=== PATIENT | male | born 1980 | race African-American/Black ===

== ENCOUNTER 2020-08-16 19:27 | Emergency (ER) | payer OTHER ==
[~2020-08-16] VITALS: Ht 185.4 cm; Wt 111.0 kg
[2020-08-16] MEDS ORDERED: AMOX-424 MT (20:33)
[2020-08-16] MEDS: AMOXICILLIN/POTASSIUM CLAVULANATE 875/125MG TAB PO ONE (21:10)
[2020-08-16 21:18] VITALS: BP 149/80
== END 2020-08-16 21:20 | disposition home or self-care (01) ==
LOC: ER 19:27
DX: L03.115 Cellulitis of right lower limb (principal); E11.9 Type 2 diabetes mellitus without complications; Z98.890 Other specified postprocedural states
CPT/HCPCS: 99283

== ENCOUNTER 2020-09-11 03:41 | Inpatient (IN) | payer OTHER ==
[~2020-09-11] VITALS: Ht 185.4 cm; Wt 110.2 kg
[~2020-09-11 03:41] MED LIST: AMOX-424 MT
[2020-09-11 05:34] LABS: BASOPHILS % 0.7 % (0.0-2.0); EOSINOPHILS % 0.6 % (0.0-5.0); HEMATOCRIT. 35.7 % (42.0-52.0); HEMOGLOBIN. 11.2 g/dL (14.0-18.0); LYMPHOCYTES % 8.3 % (20.0-50.0); MEAN CORPUSCULAR HEMOGLOBIN 26.1 pg (28.0-32.0); MEAN CORPUSCULAR VOLUME 83.1 fL (80.0-94.0); MEAN PLATELET VOLUME 8.5 fl (7.4-10.4); MONOCYTES % 14.7 % (2.0-8.0); NEUTROPHILS % 75.7 % (40.0-76.0); PLATELET 407 x1000/uL (130-400); RED BLOOD CELL COUNT 4.29 mill/uL (4.7-6.1); RED CELL DISTRIBUTION WIDTH 13.4 % (11.6-14.6)
[2020-09-11 05:41] LABS: CHLORIDE 93 mEq/L (98-107)
[2020-09-11 05:47] LABS: INR 1.1; PROTHROMBIN TIME 11.5 sec (9.6-11.0)
[2020-09-11] MEDS ORDERED: ONDANSETRON HCL 4MG/2ML INJ IV STA (06:33)
[2020-09-11] MEDS ORDERED: MORPHINE SULFATE 4 MG/ML CPJ (NOT FOR IM USE) IV STA (06:33)
[2020-09-11] MEDS ORDERED: VANCOMYCIN 1 G PREMIX 200 ML IV ONE (06:45)
[2020-09-11] MEDS ORDERED: ACETAMINOPHEN 325MG TABLET PO ONE (06:45)
[2020-09-11] MEDS ORDERED: SODIUM CHLORIDE 0.9% 1000ML BAG (SEPSIS BOLUS) IV ONE (06:45)
[2020-09-11] MEDS ORDERED: PIPERACILLIN/TAZ 3.375G PREMIX 50 ML IV ONE (06:45)
[2020-09-11 08:18] LABS: CLARITY URINE CLEAR (CLEAR); COLOR URINE YELLOW (YELLOW); KETONES URINE 2+ (NEGATIVE); LEUKOCYTE ESTERASE URINE NEGATIVE (NEGATIVE); NITRITE URINE NEGATIVE (NEGATIVE); OCCULT BLOOD URINE NEGATIVE (NEGATIVE); PH URINE 5.5 (4.5-8.0); PROTEIN URINE 1+ (NEGATIVE); SPECIFIC GRAVITY URINE 1.019 (1.005-1.030)
[2020-09-11] MEDS ORDERED: GLUC-113 MT (13:58)
[2020-09-11] MEDS ORDERED: METF-414 MT (13:58)
[2020-09-11] MEDS ORDERED: LISINOPRIL 20MG TABLET PO NR (14:00)
[2020-09-11] MEDS ORDERED: ACETAMINOPHEN 650MG/20.3ML UDC PO PRN (14:00)
[2020-09-11] MEDS ORDERED: INSULIN GLARGINE UD 100 UNITS/ML SYR SUBCUT NR (14:00)
[2020-09-11] MEDS ORDERED: PIPERACILLIN/TAZOBACTAM 3.375 G/VIAL IV SCH (14:00)
[2020-09-11] MEDS ORDERED: DEXTROSE 50% WATER 50ML SYRINGE IV PRN (14:00)
[2020-09-11 14:01] VITALS: BP 172/85
[2020-09-11] MEDS: CLONIDINE 0.1MG TABLET PO PRN (14:37)
[2020-09-11 16:00] VITALS: BP 116/66
[2020-09-11] MEDS: PIPERACILLIN/TAZOBACTAM 3.375 G in DEXT 5% WATER 100 ML IV SCH (17:04)
[2020-09-11] MEDS: VANCOMYCIN 1250MG in DEXTROSE 5% WATER 250ML IV SCH (18:05)
[2020-09-11] MEDS: BLOOD SUGAR DIAGNOSTIC STRIP TEST SCH ×2 (18:13→21:56)
[2020-09-11] MEDS: INSULIN LISPRO 100 UNITS/ML SUBCUT SCH ×2 (18:21→21:00)
[2020-09-11 20:29] VITALS: BP 102/61
[2020-09-11] MEDS: ACETAMINOPHEN 325MG TABLET PO PRN (21:55)
[2020-09-12] VITALS (7 sets, daily range): BP systolic 103–150; BP diastolic 51–74
[2020-09-12] MEDS: PIPERACILLIN/TAZOBACTAM 3.375 G in DEXT 5% WATER 100 ML IV SCH ×4 (00:37→23:38)
[2020-09-12] MEDS: VANCOMYCIN 1250MG in DEXTROSE 5% WATER 250ML IV SCH ×3 (02:07→21:09)
[2020-09-12] MEDS: BLOOD SUGAR DIAGNOSTIC STRIP TEST SCH ×4 (06:45→21:16)
[2020-09-12 08:04] LABS: CHLORIDE 95 mEq/L (98-107)
[2020-09-12 08:12] LABS: PHOSPHORUS 3.9 mg/dL (2.5-4.9)
[2020-09-12] MEDS: LISINOPRIL 20MG TABLET PO SCH ×2 (08:21→08:29)
[2020-09-12] MEDS: ACETAMINOPHEN 325MG TABLET PO PRN ×3 (08:21→22:29)
[2020-09-12] MEDS: INSULIN LISPRO 100 UNITS/ML SUBCUT SCH ×4 (08:27→21:00)
[2020-09-12] MEDS: AMLODIPINE 5MG TABLET PO SCH ×2 (08:29→17:00)
[2020-09-12] MEDS: ENOXAPARIN 30MG/0.3ML SYR SUBCUT SCH ×2 (08:29→21:00)
[2020-09-12] MEDS: INSULIN GLARGINE UD 100 UNITS/ML SYR SUBCUT SCH (10:00)
[2020-09-12 14:08] LABS: HEMATOCRIT. 31.3 % (42.0-52.0); HEMOGLOBIN. 10.2 g/dL (14.0-18.0); MEAN CORPUSCULAR HEMOGLOBIN 26.8 pg (28.0-32.0); MEAN CORPUSCULAR VOLUME 82.5 fL (80.0-94.0); PLATELET 399 x1000/uL (130-400); RED CELL DISTRIBUTION WIDTH 13.5 % (11.6-14.6)
[2020-09-12] MEDS ORDERED: LIDOCAINE HCL 1% 20ML VIAL (Pyxis) INJ INFIL NR (14:30)
[2020-09-12] MEDS ORDERED: LIDOCAINE HCL 2% JELLY 5ML TOP NR (14:30)
[2020-09-12 16:05] LABS: PLATELET ESTIMATE NORMAL
[2020-09-12] MEDS ORDERED: TETANUS, DIPHTHERIA, PERTUSSIS VAC/PF 0.5ML (>7YR OLD) IM ONE (16:30)
[2020-09-12] MEDS: GLIPIZIDE 5MG TABLET PO SCH (16:49)
[2020-09-12] MEDS: METFORMIN HCL 500MG TABLET PO SCH (16:49)
[2020-09-12] MEDS ORDERED: MAGNESIUM 1 G PREMIX 100 ML IV NR (21:00)
[2020-09-13] VITALS: BP 151/67
[2020-09-13] MEDS: VANCOMYCIN 1250MG in DEXTROSE 5% WATER 250ML IV SCH ×3 (00:43→17:28)
[2020-09-13 04:00] VITALS: BP 151/83
[2020-09-13] MEDS: BLOOD SUGAR DIAGNOSTIC STRIP TEST SCH ×4 (06:20→21:14)
[2020-09-13] MEDS: PIPERACILLIN/TAZOBACTAM 3.375 G in DEXT 5% WATER 100 ML IV SCH ×4 (06:21→23:43)
[2020-09-13] MEDS: GLIPIZIDE 5MG TABLET PO SCH ×2 (06:21→18:30)
[2020-09-13] MEDS ORDERED: BUPIVACAINE HCL/PF 0.5% (5MG/ML) 10ML ONE (07:18)
[2020-09-13] MEDS ORDERED: VANCOMYCIN HCL 1 GM/VIAL ONE (07:18)
[2020-09-13] MEDS ORDERED: LIDOCAINE HCL 1% 20ML VIAL (Pyxis) INJ ONE (07:18)
[2020-09-13] MEDS ORDERED: POLYMYXIN B SULFATE 500000 UNITS/VIAL ONE (07:18)
[2020-09-13] MEDS: INSULIN LISPRO 100 UNITS/ML SUBCUT SCH ×4 (07:50→21:00)
[2020-09-13] MEDS: METFORMIN HCL 500MG TABLET PO SCH ×2 (07:50→17:28)
[2020-09-13 08:00] VITALS: BP 150/78
[2020-09-13] MEDS: SODIUM HYPOCHLORITE 0.125% 473ML SOLUTION TOP SCH (08:00)
[2020-09-13] MEDS: AMLODIPINE 5MG TABLET PO SCH ×2 (09:00→17:28)
[2020-09-13] MEDS: LISINOPRIL 20MG TABLET PO SCH (09:00)
[2020-09-13] MEDS: ENOXAPARIN 30MG/0.3ML SYR SUBCUT SCH ×2 (09:00→21:00)
[2020-09-13] MEDS ORDERED: MIDAZOLAM HCL 5 MG/5 ML VIAL ONE (09:10)
[2020-09-13] MEDS ORDERED: FENTANYL CITRATE/PF 50MCG/ML 5ML VIAL ONE ×2 (09:12→09:16)
[2020-09-13] MEDS ORDERED: PROPOFOL 200MG/20ML VIAL IV ONE (09:13)
[2020-09-13] MEDS: INSULIN GLARGINE UD 100 UNITS/ML SYR SUBCUT SCH (10:00)
[2020-09-13] MEDS ORDERED: MEPERIDINE HCL/PF 25MG/ML CPJ IV PRN (10:30)
[2020-09-13] MEDS ORDERED: MORPHINE SULFATE 2 MG/ML CPJ (NOT FOR IM USE) IV PRN (10:30)
[2020-09-13] MEDS ORDERED: SODIUM CHLORIDE 0.9% 1,000 ML IV ONE (10:30)
[2020-09-13] MEDS ORDERED: ONDANSETRON HCL 4MG/2ML INJ IV PRN (10:30)
[2020-09-13] MEDS ORDERED: HYDROMORPHONE HCL/PF 2MG/ML CPJ IV PRN (10:30)
[2020-09-13] MEDS: ACETAMINOPHEN 325MG TABLET PO PRN (11:52)
[2020-09-13 12:00] VITALS: BP 150/82
[2020-09-13 13:54] LABS: CHLORIDE 97 mEq/L (98-107)
[2020-09-13] MEDS: HYDROCODONE/ACETAMINOPHEN 10/325MG TABLET PO PRN (14:14)
[2020-09-13 16:00] VITALS: BP 147/81
[2020-09-13 20:00] VITALS: BP 144/69
[2020-09-14] VITALS: BP 151/77
[2020-09-14] MEDS: VANCOMYCIN 1250MG in DEXTROSE 5% WATER 250ML IV SCH ×3 (02:02→18:11)
[2020-09-14 04:00] VITALS: BP 143/76
[2020-09-14] MEDS: PIPERACILLIN/TAZOBACTAM 3.375 G in DEXT 5% WATER 100 ML IV SCH ×3 (06:28→20:27)
[2020-09-14] MEDS: GLIPIZIDE 5MG TABLET PO SCH ×2 (06:28→18:11)
[2020-09-14] MEDS: BLOOD SUGAR DIAGNOSTIC STRIP TEST SCH ×4 (07:12→20:31)
[2020-09-14] MEDS: INSULIN LISPRO 100 UNITS/ML SUBCUT SCH ×4 (07:50→20:31)
[2020-09-14 08:00] VITALS: BP 148/69
[2020-09-14] MEDS ORDERED: LIDOCAINE HCL 1% 20ML VIAL (Pyxis) INJ INFIL SCH (08:30)
[2020-09-14] MEDS ORDERED: LIDOCAINE HCL 2% JELLY 5ML TOP SCH (08:30)
[2020-09-14] MEDS: ENOXAPARIN 30MG/0.3ML SYR SUBCUT SCH ×2 (09:00→20:32)
[2020-09-14] MEDS: AMLODIPINE 5MG TABLET PO SCH ×2 (09:00→17:00)
[2020-09-14] MEDS: LISINOPRIL 20MG TABLET PO SCH (09:00)
[2020-09-14] MEDS: METFORMIN HCL 500MG TABLET PO SCH ×2 (09:37→18:11)
[2020-09-14] MEDS: INSULIN GLARGINE UD 100 UNITS/ML SYR SUBCUT SCH (09:40)
[2020-09-14] MEDS: SODIUM HYPOCHLORITE 0.125% 473ML SOLUTION TOP SCH (09:41)
[2020-09-14] MEDS: HYDROCODONE/ACETAMINOPHEN 10/325MG TABLET PO PRN (10:57)
[2020-09-14 12:00] VITALS: BP 157/76
[2020-09-14 16:00] VITALS: BP 151/80
[2020-09-14 20:00] VITALS: BP 154/75
[2020-09-15] VITALS: BP 152/75
[2020-09-15] MEDS: PIPERACILLIN/TAZOBACTAM 3.375 G in DEXT 5% WATER 100 ML IV SCH ×5 (00:48→23:12)
[2020-09-15] MEDS: VANCOMYCIN 1250MG in DEXTROSE 5% WATER 250ML IV SCH ×3 (02:12→17:28)
[2020-09-15 04:00] VITALS: BP 150/80
[2020-09-15] MEDS: GLIPIZIDE 5MG TABLET PO SCH ×2 (06:30→17:28)
[2020-09-15] MEDS: BLOOD SUGAR DIAGNOSTIC STRIP TEST SCH ×4 (06:36→20:32)
[2020-09-15] MEDS: INSULIN LISPRO 100 UNITS/ML SUBCUT SCH ×4 (07:50→20:33)
[2020-09-15 08:00] VITALS: BP 137/72
[2020-09-15] MEDS: LISINOPRIL 20MG TABLET PO SCH (09:00)
[2020-09-15] MEDS: ENOXAPARIN 30MG/0.3ML SYR SUBCUT SCH ×2 (09:00→20:26)
[2020-09-15] MEDS: AMLODIPINE 5MG TABLET PO SCH ×2 (09:00→17:00)
[2020-09-15] MEDS: METFORMIN HCL 500MG TABLET PO SCH ×2 (09:19→17:28)
[2020-09-15] MEDS: SODIUM HYPOCHLORITE 0.125% 473ML SOLUTION TOP SCH (09:20)
[2020-09-15] MEDS: INSULIN GLARGINE UD 100 UNITS/ML SYR SUBCUT SCH (09:20)
[2020-09-15 10:18] LABS: HEMOGLOBIN. 10.3 g/dL (14.0-18.0); MEAN CORPUSCULAR HEMOGLOBIN 27.9 pg (28.0-32.0); MEAN CORPUSCULAR VOLUME 83.8 fL (80.0-94.0); MEAN PLATELET VOLUME 7.6 fl (7.4-10.4); PLATELET 501 x1000/uL (130-400); RED CELL DISTRIBUTION WIDTH 13.2 % (11.6-14.6)
[2020-09-15 12:00] VITALS: BP 159/78
[2020-09-15 16:00] VITALS: BP 162/84
[2020-09-15 18:28] LABS: PLATELET ESTIMATE MARKEDLY INCREASED
[2020-09-15 20:00] VITALS: BP 150/83
[2020-09-15] MEDS: ONDANSETRON HCL 4MG/2ML INJ IV PRN (23:11)
[2020-09-16 00:15] VITALS: BP 141/77
[2020-09-16] MEDS: VANCOMYCIN 1250MG in DEXTROSE 5% WATER 250ML IV SCH ×2 (01:09→10:53)
[2020-09-16 04:00] VITALS: BP 162/88
[2020-09-16] MEDS: PIPERACILLIN/TAZOBACTAM 3.375 G in DEXT 5% WATER 100 ML IV SCH ×2 (06:11→14:15)
[2020-09-16] MEDS: GLIPIZIDE 5MG TABLET PO SCH ×2 (06:22→18:14)
[2020-09-16] MEDS: BLOOD SUGAR DIAGNOSTIC STRIP TEST SCH ×4 (06:22→20:16)
[2020-09-16] MEDS: INSULIN LISPRO 100 UNITS/ML SUBCUT SCH ×4 (07:50→20:16)
[2020-09-16 08:00] VITALS: BP 165/82
[2020-09-16 08:31] LABS: VANCOMYCIN TROUGH 17.2 ug/mL (5.0-10.0)
[2020-09-16] MEDS: ENOXAPARIN 30MG/0.3ML SYR SUBCUT SCH ×2 (08:46→20:16)
[2020-09-16] MEDS: AMLODIPINE 5MG TABLET PO SCH ×2 (08:46→17:00)
[2020-09-16] MEDS: LISINOPRIL 20MG TABLET PO SCH (08:46)
[2020-09-16] MEDS: METFORMIN HCL 500MG TABLET PO SCH ×2 (08:54→18:34)
[2020-09-16] MEDS: SODIUM HYPOCHLORITE 0.125% 473ML SOLUTION TOP SCH (09:11)
[2020-09-16] MEDS: INSULIN GLARGINE UD 100 UNITS/ML SYR SUBCUT SCH (10:00)
[2020-09-16] MEDS: CLONIDINE 0.1MG TABLET PO PRN ×2 (11:56→23:02)
[2020-09-16 12:00] VITALS: BP 173/93
[2020-09-16] MEDS ORDERED: VANCOMYCIN 1500MG in DEXTROSE 5% WATER 250ML IV SCH (12:00)
[2020-09-16] MEDS: AMPICILLIN SOD/SULBACTAM NA 3 G in SODIUM CHLORIDE 0.9% 100 ML IV SCH ×2 (18:15→23:02)
[2020-09-16 20:29] VITALS: BP 157/78
[2020-09-16] MEDS: ONDANSETRON HCL 4MG/2ML INJ IV PRN (22:56)
[2020-09-17] VITALS: BP 165/81
[2020-09-17 04:00] VITALS: BP 147/84
[2020-09-17] MEDS: AMPICILLIN SOD/SULBACTAM NA 3 G in SODIUM CHLORIDE 0.9% 100 ML IV SCH ×4 (05:20→23:46)
[2020-09-17] MEDS: BLOOD SUGAR DIAGNOSTIC STRIP TEST SCH ×4 (05:48→21:26)
[2020-09-17] MEDS: DIPHENHYDRAMINE 50MG/ML VIAL IV PRN (05:49)
[2020-09-17 06:31] LABS: CLARITY URINE CLEAR (CLEAR); COLOR URINE YELLOW (YELLOW); KETONES URINE NEGATIVE (NEGATIVE); LEUKOCYTE ESTERASE URINE TRACE (NEGATIVE); NITRITE URINE NEGATIVE (NEGATIVE); OCCULT BLOOD URINE NEGATIVE (NEGATIVE); PH URINE 5.5 (4.5-8.0); PROTEIN URINE TRACE (NEGATIVE); SPECIFIC GRAVITY URINE 1.011 (1.005-1.030); UROBILINOGEN URINE 0.2 E.U./dL (0.2-1.0)
[2020-09-17] MEDS: INSULIN LISPRO 100 UNITS/ML SUBCUT SCH ×4 (07:50→21:00)
[2020-09-17] MEDS: METFORMIN HCL 500MG TABLET PO SCH ×2 (08:39→18:02)
[2020-09-17] MEDS: GLIPIZIDE 5MG TABLET PO SCH ×2 (08:39→18:02)
[2020-09-17] MEDS: LISINOPRIL 20MG TABLET PO SCH (08:41)
[2020-09-17] MEDS: AMLODIPINE 5MG TABLET PO SCH ×2 (08:41→17:00)
[2020-09-17] MEDS: SODIUM HYPOCHLORITE 0.125% 473ML SOLUTION TOP SCH (08:41)
[2020-09-17] MEDS: ENOXAPARIN 30MG/0.3ML SYR SUBCUT SCH ×2 (08:41→21:00)
[2020-09-17] MEDS: INSULIN GLARGINE UD 100 UNITS/ML SYR SUBCUT SCH (09:41)
[2020-09-17] MEDS ORDERED: LIDOCAINE HCL 1% 20ML VIAL (Pyxis) INJ ONE (11:32)
[2020-09-17 16:00] VITALS: BP 150/99
[2020-09-17 20:00] VITALS: BP 146/83
[2020-09-18] VITALS: BP_SYST 156; BP_SYST 157; BP_DIAS 76; BP_DIAS 81
[2020-09-18 04:00] VITALS: BP 157/76
[2020-09-18] MEDS: AMPICILLIN SOD/SULBACTAM NA 3 G in SODIUM CHLORIDE 0.9% 100 ML IV SCH ×3 (05:34→17:35)
[2020-09-18] MEDS: GLIPIZIDE 5MG TABLET PO SCH ×2 (06:21→17:34)
[2020-09-18] MEDS: BLOOD SUGAR DIAGNOSTIC STRIP TEST SCH ×4 (06:26→21:15)
[2020-09-18] MEDS: INSULIN LISPRO 100 UNITS/ML SUBCUT SCH ×4 (07:50→21:00)
[2020-09-18 08:00] VITALS: BP 166/90
[2020-09-18] MEDS: ONDANSETRON HCL 4MG/2ML INJ IV PRN ×2 (08:48→20:16)
[2020-09-18] MEDS: METFORMIN HCL 500MG TABLET PO SCH ×2 (08:48→17:34)
[2020-09-18] MEDS: AMLODIPINE 5MG TABLET PO SCH ×2 (08:51→17:00)
[2020-09-18] MEDS: LISINOPRIL 20MG TABLET PO SCH (08:51)
[2020-09-18] MEDS: ENOXAPARIN 30MG/0.3ML SYR SUBCUT SCH ×2 (08:51→21:00)
[2020-09-18] MEDS: SODIUM HYPOCHLORITE 0.125% 473ML SOLUTION TOP SCH (08:51)
[2020-09-18] MEDS: INSULIN GLARGINE UD 100 UNITS/ML SYR SUBCUT SCH (10:00)
[2020-09-18] MEDS: ACETAMINOPHEN 325MG TABLET PO PRN (10:19)
[2020-09-18 12:00] VITALS: BP 166/86
[2020-09-18 20:00] VITALS: BP 164/83
[2020-09-18] MEDS: SODIUM CHLORIDE 0.9% 1,000 ML IV SCH (22:22)
[2020-09-19] VITALS: BP 156/76
[2020-09-19] MEDS: AMPICILLIN SOD/SULBACTAM NA 3 G in SODIUM CHLORIDE 0.9% 100 ML IV SCH ×2 (00:02→05:17)
[2020-09-19 04:00] VITALS: BP 168/90
[2020-09-19] MEDS: SODIUM CHLORIDE 0.9% 1,000 ML IV SCH ×3 (05:18→21:30)
[2020-09-19] MEDS: GLIPIZIDE 5MG TABLET PO SCH ×2 (06:37→17:14)
[2020-09-19] MEDS: BLOOD SUGAR DIAGNOSTIC STRIP TEST SCH ×4 (06:38→21:43)
[2020-09-19 06:53] LABS: BASOPHILS % 0.2 % (0.0-2.0); EOSINOPHILS % 4.7 % (0.0-5.0); HEMATOCRIT. 31.4 % (42.0-52.0); HEMOGLOBIN. 10.1 g/dL (14.0-18.0); LYMPHOCYTES % 7.6 % (20.0-50.0); MEAN CORPUSCULAR HEMOGLOBIN 26.4 pg (28.0-32.0); MEAN CORPUSCULAR VOLUME 82.2 fL (80.0-94.0); MEAN PLATELET VOLUME 7.3 fl (7.4-10.4); MONOCYTES % 11.1 % (2.0-8.0); NEUTROPHILS % 76.4 % (40.0-76.0); PLATELET 620 x1000/uL (130-400); RED BLOOD CELL COUNT 3.82 mill/uL (4.7-6.1); RED CELL DISTRIBUTION WIDTH 13.7 % (11.6-14.6)
[2020-09-19] MEDS: INSULIN LISPRO 100 UNITS/ML SUBCUT SCH ×4 (07:50→21:00)
[2020-09-19 08:00] VITALS: BP 160/81
[2020-09-19] MEDS: LISINOPRIL 20MG TABLET PO SCH (09:00)
[2020-09-19] MEDS: ENOXAPARIN 30MG/0.3ML SYR SUBCUT SCH ×2 (09:00→21:00)
[2020-09-19] MEDS: AMLODIPINE 5MG TABLET PO SCH ×2 (09:00→17:00)
[2020-09-19] MEDS: METFORMIN HCL 500MG TABLET PO SCH ×2 (09:06→17:14)
[2020-09-19] MEDS: INSULIN GLARGINE UD 100 UNITS/ML SYR SUBCUT SCH (09:07)
[2020-09-19] MEDS: SODIUM HYPOCHLORITE 0.125% 473ML SOLUTION TOP SCH (09:08)
[2020-09-19] MEDS: ONDANSETRON HCL 4MG/2ML INJ IV PRN (09:08)
[2020-09-19] MEDS ORDERED: LIDOCAINE HCL 1% 20ML VIAL (Pyxis) INJ ONE (09:40)
[2020-09-19 12:00] VITALS: BP 155/77
[2020-09-19] MEDS: DIPHENHYDRAMINE 50MG/ML VIAL IV PRN (13:36)
[2020-09-19] MEDS: METRONIDAZOLE 500MG TABLET PO SCH ×3 (15:14→23:00)
[2020-09-19] MEDS: LEVOFLOXACIN 250MG TABLET PO SCH (15:17)
[2020-09-19] MEDS ORDERED: VANCOMYCIN 2,000 MG in DEXT 5% WATER 500 ML IV SCH (16:00)
[2020-09-19 20:00] VITALS: BP 169/69
[2020-09-19] MEDS: HYDROCORTISONE 1% OINT 28.35GM TOP SCH (21:00)
[2020-09-20] VITALS: BP 147/70
[2020-09-20 04:00] VITALS: BP 166/88
[2020-09-20] MEDS: SODIUM CHLORIDE 0.9% 1,000 ML IV SCH ×4 (05:30→21:30)
[2020-09-20] MEDS: BLOOD SUGAR DIAGNOSTIC STRIP TEST SCH ×4 (06:53→21:00)
[2020-09-20] MEDS: GLIPIZIDE 5MG TABLET PO SCH ×2 (07:00→17:43)
[2020-09-20] MEDS: METFORMIN HCL 500MG TABLET PO SCH ×2 (07:00→17:40)
[2020-09-20] MEDS: INSULIN LISPRO 100 UNITS/ML SUBCUT SCH ×4 (07:00→21:00)
[2020-09-20 08:00] VITALS: BP 170/80
[2020-09-20] MEDS: METRONIDAZOLE 500MG TABLET PO SCH ×2 (08:36→21:40)
[2020-09-20] MEDS: SODIUM HYPOCHLORITE 0.125% 473ML SOLUTION TOP SCH (08:37)
[2020-09-20] MEDS: AMLODIPINE 5MG TABLET PO SCH ×2 (08:38→17:00)
[2020-09-20] MEDS: LISINOPRIL 20MG TABLET PO SCH (08:38)
[2020-09-20] MEDS: ENOXAPARIN 30MG/0.3ML SYR SUBCUT SCH ×2 (08:39→21:00)
[2020-09-20] MEDS: HYDROCORTISONE 1% OINT 28.35GM TOP SCH ×2 (08:39→21:00)
[2020-09-20 08:50] LABS: HEMATOCRIT. 30.4 % (42.0-52.0); HEMOGLOBIN. 9.9 g/dL (14.0-18.0); MEAN CORPUSCULAR HEMOGLOBIN 27.1 pg (28.0-32.0); MEAN CORPUSCULAR VOLUME 83.3 fL (80.0-94.0); MEAN PLATELET VOLUME 7.2 fl (7.4-10.4); PLATELET 594 x1000/uL (130-400); RED BLOOD CELL COUNT 3.65 mill/uL (4.7-6.1); RED CELL DISTRIBUTION WIDTH 13.5 % (11.6-14.6)
[2020-09-20] MEDS: INSULIN GLARGINE UD 100 UNITS/ML SYR SUBCUT SCH (10:00)
[2020-09-20] MEDS: LEVOFLOXACIN 250MG TABLET PO SCH (10:30)
[2020-09-20 12:00] VITALS: BP 173/91
[2020-09-20 17:47] LABS: PLATELET ESTIMATE INCREASED
[2020-09-20] MEDS: VANCOMYCIN 1250MG in DEXTROSE 5% WATER 250ML IV SCH (18:16)
[2020-09-21] MEDS: DIPHENHYDRAMINE 50MG/ML VIAL IV PRN (01:42)
[2020-09-21] MEDS: SODIUM CHLORIDE 0.9% 1,000 ML IV SCH ×2 (04:51→21:30)
[2020-09-21] MEDS: BLOOD SUGAR DIAGNOSTIC STRIP TEST SCH ×4 (06:45→20:17)
[2020-09-21] MEDS: GLIPIZIDE 5MG TABLET PO SCH ×2 (06:49→17:43)
[2020-09-21] MEDS: METFORMIN HCL 500MG TABLET PO SCH ×2 (06:50→17:43)
[2020-09-21] MEDS: INSULIN LISPRO 100 UNITS/ML SUBCUT SCH ×4 (07:17→20:22)
[2020-09-21 08:45] LABS: BASOPHILS % 0.5 % (0.0-2.0); EOSINOPHILS % 4.9 % (0.0-5.0); HEMATOCRIT. 30.7 % (42.0-52.0); HEMOGLOBIN. 9.8 g/dL (14.0-18.0); MEAN CORPUSCULAR HEMOGLOBIN 26.3 pg (28.0-32.0); MEAN CORPUSCULAR VOLUME 82.6 fL (80.0-94.0); MEAN PLATELET VOLUME 6.8 fl (7.4-10.4); MONOCYTES % 10.6 % (2.0-8.0); PLATELET 583 x1000/uL (130-400); RED BLOOD CELL COUNT 3.72 mill/uL (4.7-6.1); RED CELL DISTRIBUTION WIDTH 13.6 % (11.6-14.6)
[2020-09-21] MEDS: AMLODIPINE 5MG TABLET PO SCH ×2 (09:00→17:00)
[2020-09-21] MEDS: LISINOPRIL 20MG TABLET PO SCH (09:00)
[2020-09-21] MEDS: ENOXAPARIN 30MG/0.3ML SYR SUBCUT SCH ×2 (09:00→20:16)
[2020-09-21] MEDS: METRONIDAZOLE 500MG TABLET PO SCH ×2 (09:33→20:16)
[2020-09-21] MEDS: SODIUM HYPOCHLORITE 0.125% 473ML SOLUTION TOP SCH (09:36)
[2020-09-21] MEDS: HYDROCORTISONE 1% OINT 28.35GM TOP SCH ×2 (09:36→20:17)
[2020-09-21] MEDS: INSULIN GLARGINE UD 100 UNITS/ML SYR SUBCUT SCH (09:37)
[2020-09-21] MEDS: LEVOFLOXACIN 250MG TABLET PO SCH (12:07)
[2020-09-21] MEDS: VANCOMYCIN 1250MG in DEXTROSE 5% WATER 250ML IV SCH (17:43)
[2020-09-21 22:30] VITALS: BP 137/53
[2020-09-21] MEDS ORDERED: LORAZEPAM 1MG TABLET PO PRN (22:45)
[2020-09-22] MEDS: INSULIN LISPRO 100 UNITS/ML SUBCUT SCH ×4 (07:03→20:00)
[2020-09-22] MEDS: BLOOD SUGAR DIAGNOSTIC STRIP TEST SCH ×4 (07:03→20:00)
[2020-09-22 08:00] VITALS: BP 175/86
[2020-09-22] MEDS: METRONIDAZOLE 500MG TABLET PO SCH ×2 (08:39→20:00)
[2020-09-22] MEDS: GLIPIZIDE 5MG TABLET PO SCH ×2 (08:39→17:49)
[2020-09-22] MEDS: METFORMIN HCL 500MG TABLET PO SCH ×2 (08:39→17:49)
[2020-09-22] MEDS: AMLODIPINE 5MG TABLET PO SCH ×2 (08:40→17:00)
[2020-09-22] MEDS: LISINOPRIL 20MG TABLET PO SCH (08:40)
[2020-09-22] MEDS: SODIUM HYPOCHLORITE 0.125% 473ML SOLUTION TOP SCH ×2 (08:41→11:40)
[2020-09-22] MEDS: ENOXAPARIN 30MG/0.3ML SYR SUBCUT SCH ×2 (08:41→20:00)
[2020-09-22] MEDS: HYDROCORTISONE 1% OINT 28.35GM TOP SCH ×2 (08:41→20:01)
[2020-09-22 09:11] LABS: BASOPHILS % 1.1 % (0.0-2.0); EOSINOPHILS % 6.1 % (0.0-5.0); HEMATOCRIT. 32.4 % (42.0-52.0); HEMOGLOBIN. 10.1 g/dL (14.0-18.0); MEAN CORPUSCULAR HEMOGLOBIN 26.1 pg (28.0-32.0); MEAN CORPUSCULAR VOLUME 83.8 fL (80.0-94.0); MEAN PLATELET VOLUME 7.6 fl (7.4-10.4); MONOCYTES % 10.8 % (2.0-8.0); PLATELET 560 x1000/uL (130-400); RED BLOOD CELL COUNT 3.87 mill/uL (4.7-6.1); RED CELL DISTRIBUTION WIDTH 13.8 % (11.6-14.6)
[2020-09-22] MEDS: INSULIN GLARGINE UD 100 UNITS/ML SYR SUBCUT SCH (10:00)
[2020-09-22] MEDS: LEVOFLOXACIN 250MG TABLET PO SCH (11:30)
[2020-09-22] MEDS ORDERED: LORAZEPAM 0.5MG TABLET PO PRN (16:15)
[2020-09-22] MEDS: VANCOMYCIN 1250MG in DEXTROSE 5% WATER 250ML IV SCH (17:49)
[2020-09-22] MEDS: SODIUM CHLORIDE 0.9% 1,000 ML IV SCH (21:21)
[2020-09-23] MEDS: DIPHENHYDRAMINE 50MG/ML VIAL IV PRN (01:37)
[2020-09-23] MEDS: SODIUM CHLORIDE 0.9% 1,000 ML IV SCH (04:47)
[2020-09-23] MEDS: GLIPIZIDE 5MG TABLET PO SCH (06:29)
[2020-09-23] MEDS: BLOOD SUGAR DIAGNOSTIC STRIP TEST SCH (06:30)
[2020-09-23] MEDS: INSULIN LISPRO 100 UNITS/ML SUBCUT SCH (07:50)
[2020-09-23 08:00] VITALS: BP 161/86
[2020-09-23] MEDS: ENOXAPARIN 30MG/0.3ML SYR SUBCUT SCH (09:00)
[2020-09-23] MEDS: SODIUM HYPOCHLORITE 0.125% 473ML SOLUTION TOP SCH ×2 (09:00)
[2020-09-23] MEDS: AMLODIPINE 5MG TABLET PO SCH (09:00)
[2020-09-23] MEDS: LISINOPRIL 20MG TABLET PO SCH (09:00)
[2020-09-23] MEDS: HYDROCORTISONE 1% OINT 28.35GM TOP SCH (09:00)
[2020-09-23] MEDS: METFORMIN HCL 500MG TABLET PO SCH (09:25)
[2020-09-23] MEDS: METRONIDAZOLE 500MG TABLET PO SCH (09:25)
[2020-09-23] MEDS: INSULIN GLARGINE UD 100 UNITS/ML SYR SUBCUT SCH (10:00)
[2020-09-23 11:01] VITALS: BP 161/86
== END 2020-09-23 11:55 | disposition home or self-care (01) | DRG 854 ==
LOC: ER 03:41 → 6EST 10:19 → EDBEDREQ 10:32 → EDBEDREQSVC 10:32 → EDBEDREQ 10:33 → ENRESERV 11:43
PROVIDERS: ADMIT Internal Medicine; ATTEND Internal Medicine
PROC: 0QBN0ZZ Excision of Right Metatarsal, Open Approach (ICD-10-PCS; principal; 2020-09-13)
PROC: 02HV33Z Insertion of Infusion Device into Superior Vena Cava, Percutaneous Approach (ICD-10-PCS; 2020-09-19)
PROC: B5181ZA Fluoroscopy of Superior Vena Cava using Low Osmolar Contrast, Guidance (ICD-10-PCS; 2020-09-19)
PROC: B548ZZA Ultrasonography of Superior Vena Cava, Guidance (ICD-10-PCS; 2020-09-19)
DX: A41.9 Sepsis, unspecified organism (principal); E87.1 Hypo-osmolality and hyponatremia; L02.611 Cutaneous abscess of right foot; L03.115 Cellulitis of right lower limb; M86.8X7 Other osteomyelitis, ankle and foot; N17.9 Acute kidney failure, unspecified; L97.419 Non-pressure chronic ulcer of right heel and midfoot with unspecified severity; D64.9 Anemia, unspecified; E11.622 Type 2 diabetes mellitus with other skin ulcer; I10 Essential (primary) hypertension; F41.9 Anxiety disorder, unspecified; L27.0 Generalized skin eruption due to drugs and medicaments taken internally; Z96.1 Presence of intraocular lens; S80.821A Blister (nonthermal), right lower leg, initial encounter; E11.621 Type 2 diabetes mellitus with foot ulcer; Z20.822 Contact with and (suspected) exposure to COVID-19; X58.XXXA Exposure to other specified factors, initial encounter; Z60.2 Problems related to living alone; E11.65 Type 2 diabetes mellitus with hyperglycemia; Z79.899 Other long term (current) drug therapy; Z79.2 Long term (current) use of antibiotics; Y93.89 Activity, other specified; Y92.89 Other specified places as the place of occurrence of the external cause; Y99.8 Other external cause status
CPT/HCPCS: 36415; 36573; 71045; 73630; 73721; 80048; 80053; 80202; 81003; 82550; 82962; 83036; 83605; 83735; 84100; 84145; 85025; 85651; 86140; 87070; 87077; 87186; 87426; 88305; 88311; 90715; 93005; 93970; 97162; 99285; C1725; C1769; J0295; J1170; J1200; J1650; J1815; J2250; J2405; J2543; J2704; J3010; J3370; J3475; J3490; J7030; J7040; J7050; J7060